=== PATIENT | male | born 1935 | race Caucasian/White ===

== ENCOUNTER 2020-09-29 14:49 | Inpatient (IN) | payer MEDICARE ==
[~2020-09-29] VITALS: Ht 177.8 cm; Wt 70.1 kg
[2020-09-29] MEDS ORDERED: SOTALOL160 MG PO (15:01)
[2020-09-29] MEDS ORDERED: JANTOVEN2.5 MG PO (15:05)
[2020-09-29] MEDS ORDERED: DILT-XR180 MG PO (17:27)
[2020-09-29] MEDS ORDERED: ATORVASTATIN CA40 MG PO (17:38)
[2020-09-29] MEDS ORDERED: GABAPENTIN100 MG PO (17:38)
--- NOTE | 2020-09-29 18:22 | NUR ---
PT ARRIVES FROM ER AT APPROXIMATLY 1810. PT IS ALERT AND OREINTED X4, HOWEVER HARD OF HEARING. PT ABLE TO STAND AND PIVOT TO THE BED. PT DENIES PAIN, NAUSEA, AND REPORTS IMPROVED SOB SINCE THIS AM. PT IS CURRENTLY ON 5L O2 VIA OXYMASK. PT VITALS ARE WNL. S-LOCK IN LEFT AC IS INTACT, FLUSHES EASILY, PT DENIES PAIN AT THE SITE. DINNER ORDERED FOR PT. PT REPORTS BEING COLD, WARM BLANKETS APPLIED.
--- NOTE | 2020-09-29 19:10 | NUR ---
pt back on bipap for increased work of breathing.
--- NOTE | 2020-09-29 19:46 | NUR ---
REPORT RECEIVED FROM LUCIANA RN, WILL CONTINUE PLAN OF CARE.
--- NOTE | 2020-09-29 20:33 | NUR ---
THIS RN IN TO ASSESS PT. PT LAYING IN BED AWAKE AND ALERT ON BIPAP WITH DAUGHTER AT BEDSIDE. BIPAP NOTED TO BE AT 50% FIO2, SPO2 AT 97%. PT IS ALERT AND ORIENTED AT THIS TIME, ASSESMENT COMPLETED AT THIS TIME. LUNGS ARE CLEAR IN UPPER LOBES AND CLEAR/DIMINISHED IN LOWER LOBES. EDEMA PRESENT IN THE LOWER LEGS/FEET THE RIGHT MORE THEN THE LEFT. PEDAL PULSES +1. RADIAL PULSES STRONG. CAPILLARY REFILL BRISK. PT DENIES SOB AND STATES HE FEELS MUCH BETTER WITH THE BIPAP ON. PT DENIES PAIN AT THIS TIME. SCHEDULED MEDICATIONS ADMINISTERED AT THIS TIME. PT REPORTS NO FURTHER NEEDS AT THIS TIME, WILL CONTINUE PLAN OF CARE. CALL LIGHT IN REACH, BED IN LOWEST POSITION, BIPAP ON AT 50% FIO2, SPO2 AT 97%.
--- NOTE | 2020-09-29 21:30 | NUR ---
THIS RN IN TO CHECK ON PT. PT LAYING IN BED SEMI-FOWLERS ON BIPAP. BIPAP ALARMING DUE TO AIR LEAK, MASK REPOSITIONED ON PT. PT AWAKE AND ALERT AND REPORTS NO FURTHER NEEDS WHEN ASKED. WILL CONTINUE PLAN OF CARE. CALL LIGHT IN REACH, BED IN LOWEST POSITION.
--- NOTE | 2020-09-29 22:25 | NUR ---
THIS RN IN TO ADMINISTER SCHEDULED MEDICATION. PT LAYING IN BED SLEEPING WITH BIPAP IN PLACE. PT AWOKE EASILY AND WAS INFORMED ABOUT THE MEDICATION. MEDICATION ADMINSTERED ORDERED. PT REPORTS NO NEEDS WHEN ASKED AND IS NOW LAYING IN BED WITH THE BIPAP ON. PT RETURNED BACK TO SLEEP, WILL CONTINUE PLAN OF CARE. CALL LIGHT IN REACH, BED IN LOWEST POSITION.
--- NOTE | 2020-09-29 23:22 | NUR ---
THIS RN IN TO ASSESS PT. PT LAYING IN BED AWAKE AT THIS TIME ON THE BIPAP. PT REPORTS NO PAIN OR SOB WHEN ASKED. PT ASSESSMENT DONE AT THIS TIME. PT GIVEN A SNACK PER HIS REQUEST, PT ABLE TO EAT A PUDDING ON 6L NC AND MAINTAINING SPO2 IN THE 95% RANGE. PT STATED HE WANTED TO GO BACK ON THE BIPAP AFTER DRINKING AND EATING HIS SNACK. PT PLACED BACK ON BIPAP AT THIS TIME. FIO2 STILL AT 50%, PT SPO2 AT 97%, RR AT 18. PT REPORTS NO FURTHER NEEDS AT THIS TIME WHEN ASKED, WILL CONTINUE PLAN OF CARE. CALL LIGHT IN REACH, BED IN LOWEST POSITION, TRAN DRAINING, BIPAP ON.
--- NOTE | 2020-09-30 02:00 | NUR ---
PT SLEEPING AT THIS TIME ON THE BIPAP. RESPIRATIONS NOTED AND ARE EVEN AND UNLABORED. PT IN NO APPARENT DISTRESS AND WAS LEFT UNDISTURBED. CALL LIGHT IN REACH, BED IN LOWEST POSITION. WILL CONTINUE PLAN OF CARE.
--- NOTE | 2020-09-30 04:16 | NUR ---
THIS RN IN TO ASSESS PT. PT LAYING IN BED ON BIPAP. PT AWOKE EASILY AT THIS TIME AND WAS ALERT AND ORIENTED. VITALS TAKEN AT THIS TIME, PT ASSESSED. PT REPORTS NO PAIN AT THIS TIME OR SOB. LUNGS ARE CLEAR IN UPPER LOBES AND CLEAR/DIM IN LOWER LOBES. PT REPORTS NO NEEDS AT THIS TIME AND WAS LEFT ON THE BIPAP. PT RETURNED BACK TO SLEEP. CALL LIGHT IN REACH, BED IN LOWEST POSITION, WILL CONTINUE PLAN OF CARE.
--- NOTE | 2020-09-30 06:23 | NUR ---
THIS RN IN TO DRAW LABS. PT LAYING IN BED ON BIPAP SLEEPING. LABS DRAWN FROM PT'S IV. IV FLUSHED AND SCHEDULED IV MEDICATION ADMINISTERED AT THIS TIME WELL (SEE MAR). PT REPORTS NO FURTHER NEEDS AT THIS TIME AND REMAINS ON THE BIPAP. CALL LIGHT IN REACH, BED IN LOWEST POSITION, WILL CONTINUE PLAN OF CARE.
--- NOTE | 2020-09-30 06:39 | NUR ---
DR. CURRY CALLED AT THIS TIME TO UPDATE HIM ON PT'S STATUS AND DECREASING URINE OUTPUT. NO NEW ORDERS GIVEN AT THIS TIME, WILL WAIT FOR LAB RESULTS.
--- NOTE | 2020-09-30 06:57 | NUR ---
THIS RN IN TO CHECK ON PT. PT LAYING IN BED AWAKE AND ALERT ON THE BIPAP. PT ASSISTED IN TAKING BIPAP OFF TO DRINK WATER. PT LEFT ON 5L O2 NC AT THIS TIME. PT SPO2 MAINTAINED AT 95%, RR OF 16. PT REPORTS NO FURTHER NEEDS WHEN ASKED, WILL CONTINUE PLAN OF CARE. CALL LIGHT IN REACH, BED IN LOWEST POSITION.
--- NOTE | 2020-09-30 08:53 | NUR ---
Sitting up in bed, eating breakfast. Assessment completed. Urine output remains low. IV lasix given as prescribed. Takes oral medications without difficulty. Denies pain at this time. Call light in reach, bed rails up X2. Remains on oxygen at 5L/min per nasal canula.
--- NOTE | 2020-09-30 09:00 | NUR ---
DR. CURRY AWARE OF LOW URINE OUTPUT, LASIX ORDERED AND GIVEN.
[2020-09-30] MEDS ORDERED: LASIX40 MG PO (09:14)
[2020-09-30] MEDS ORDERED: NITROSTAT0.4 MG SL (09:21)
[2020-09-30] MEDS ORDERED: VENTOLIN HFA18 GM INH (09:24)
[2020-09-30] MEDS ORDERED: PRESERVISION A1 EACH PO (09:25)
[2020-09-30] MEDS ORDERED: LO-DOSE ASPIRIN81 M1 PO (09:25)
--- NOTE | 2020-09-30 09:48 | NUR ---
PT in room working with patient at this time.
--- NOTE | 2020-09-30 10:08 | NUR ---
LARGE INCREASE IN URINE OUTPUT NOTED SINCE ADMINISTERING IV LASIX. VITALS REMAIN WNL. DENIES NEEDS AT THIS TIME. FRESH ICE WATER PROVIDED.
--- NOTE | 2020-09-30 10:30 | NUR ---
PT EVALUATED BY THIS RT FOR COPD CARE PATH. BASED ON RECENT COPD EXASERBATION REQUIRING HOSPITALIZATION IT WAS RECOMMENDED TO CLINICAL PHARMACY THAT PATIENT BE STARTED ON INHALED LAMA UPON DISCHARGE. RT ALSO RECOMMENDS OBTAINING REST AND EXERCISE OXIMETRY PRIOR TO DISCHARGE. PT ALREADY HAS [facility]IA [facility] FOR HOME USED. PROPER INHALER TRAINING WITH SPACER CONDUCTED WITH PATIENT. PT LEFT WITH SPACER IN, PLACED WITH PATIENT BELONGINGS.
--- NOTE | 2020-09-30 11:00 | NUR ---
Spoke with Mak and his daughter, Pilar. PT is very [place] and has his hearing aids in. Staying with daughter since covid as he lives in [place], [place] in assisted living and it was locked down. Pt drives himself to [facility] monthly, then returns to daughter's home in [place]. Denies needs and plans on dc to daughters home when cleared medically. No financial issues.
--- NOTE | 2020-09-30 12:09 | NUR ---
Patient in bed. Medications administered as prescribed. Takes without difficulty. Second dose of IV lasix administered. Urine ouput has maintained. Remains on O2. Switched from oxymask to nasal canula so he may eat. O2 at 5L/min per nasal canula while eating. No further changes from AM assessment noted.
--- NOTE | 2020-09-30 13:53 | EKG ---
[facility] [address] [facility] [place] [address] Signed Sinus rhythm with 1st degree AV block Incomplete left bundle branch block Abnormal QRS-T angle, consider primary T wave abnormality Prolonged QT Abnormal ECG When compared with ECG of 29-SEP-2020 15:22, (Unconfirmed) Sinus rhythm has replaced Electronic atrial pacemaker Confirmed by SILVIA CURRY DO ([id number]) on 09/30/2020 1:53:06 PM Electronically Signed By: SILVIA CURRY DO 09/30/20 1353 PATIENT NAME: CHATA BARFIELD Electrocardiogram DATE OF : 31 PHYSICIAN: SILVIA CURRY DO REPORT #: [id number] REPORT IS CONFIDENTIAL AND NOT TO BE RELEASED WITHOUT AUTHORIZATION
--- NOTE | 2020-09-30 13:53 | EKG ---
[facility] [address] [facility] [place] [address] Signed Atrial-paced rhythm with prolonged AV conduction Incomplete left bundle branch block ST \T\ T wave abnormality, consider lateral ischemia Abnormal ECG No previous ECGs available Confirmed by SILVIA CURRY DO ([id number]) on 09/30/2020 1:53:34 PM Electronically Signed By: SILVIA CURRY DO 09/30/20 1353 PATIENT NAME: CAROLYNECHATA Electrocardiogram DATE OF : 31 PHYSICIAN: SILVIA CURRY DO REPORT #: [id number] REPORT IS CONFIDENTIAL AND NOT TO BE RELEASED WITHOUT AUTHORIZATION
--- NOTE | 2020-09-30 14:28 | NUR ---
PATIENT MOVED FROM ROOM 127 TO ROOM 115 AT 1415. IV STEROID GIVEN, IV MAGNESIUM INFUSION STARTED. PATIENT IS OTHERWISE RESTING COMFORTABLY, 2L OF OXYGEN AT THIS TIME.
--- NOTE | 2020-09-30 14:51 | NUR ---
Attempted to see patient for heart failure education. Patient asleep after transferring rooms. Chart reviewed. Awaiting echocardiogram results.
--- NOTE | 2020-09-30 16:08 | NUR ---
PATIENT RESTING IN BED. DAILY COUMADIN DOSE GIVEN.
--- NOTE | 2020-09-30 17:45 | NUR ---
PATIENT BOOSTED IN BED AND SITTING UP FOR DINNER. PATIENT DENIES OTHER NEEDS AT THIS TIME.
--- NOTE | 2020-10-01 01:24 | NUR ---
RESTING, EYES CLOSED, NO DISTRESS, O2 2L NC. NOT USING CPAP AT THIS TIME, F/C PATENT
--- NOTE | 2020-10-01 05:12 | NUR ---
Pt has slept, O2 2LNC in place, lungs dim at bases, no cough noted, this shift. did not used his cpap.. f/c patent. no c/o pain. gets nebs. helps with turning and repositoning, no emesis, tolerating fludis
--- NOTE | 2020-10-01 06:49 | NUR ---
aWAKE, COOP WITH ASSESSMENT, ON ROOOM AIR AT THIS TIME, NO C/O SOB. WATCHING TV
--- NOTE | 2020-10-01 07:15 | NUR ---
SHIFT REPORT FROM TOM JOSEPH INCLUDED: pt had an uneventful evening. pt was on 2L NC but has been able to safely maintain his o2sats >90% on RA, so pt is currently on RA. pt is currently resting in bed, with eyes closed, breathing even and unlabored, table and call light within reach.
--- NOTE | 2020-10-01 08:03 | NUR ---
PT EATING BREAKFAST. BP ELEVATED SINCE LAST READING. PT HAS NO COMPLAINTS. RN HERIBERTO INFORMED. PT RESTING COMFORTABLY.
--- NOTE | 2020-10-01 08:30 | NUR ---
ROUNDING student nurse and teacher working with pt at this time. table and call light in reach.
--- NOTE | 2020-10-01 08:47 | NUR ---
Pt given medications by this nursing manager and instructor Lucille Renner RN. Pt tolerated meds without complication. Pt resting comfortably watching TV. RT in pt room to administer nebulized medications. SN Gregory
--- NOTE | 2020-10-01 10:00 | NUR ---
ASSESSMENT pt med pass and morning assessment done by student nurse Elizabeth and her teacher. my pt assessment complete at this time. VSS. pt denies pain and nausea. pt reports that he is cold and prefers his blankets up to his chin, but is otherwise comfortable. pt denies further needs at this time. pt winston emptied, clear light yellow urine, quantity sufficient. pt in bed, table and call light in reach.
--- NOTE | 2020-10-01 10:47 | NUR ---
PT FINISHED 75% OF BREAKFAST WITH COFFEE AND WATER. PT RESTING COMFORTABLY WATCHING TV. RT PERFORMED ECG, LEFT ROOM. ASSESSMENT DONE BY THIS SUGGESTION CLERK. PT HAS NO COMPLAINTS AND PAIN LEVEL IS 0/10. REFILLED ICE WATER. LEFT ANTICUBITAL IV PATENT, DRESSING INTACT. CALL LIGHT WITHIN REACH. TRAN EMPTIED, 450 ML CLEAR YELLOW URINE. PACEMAKER NOTED. HR REGULAR AND REMAINS 99-103 BPM. PT HAS SLIGHT EDEMA ON BILTERAL ANKLE AND BILATERAL FOOT BUT DENIES PAIN, C/O NUMBNESS AND TINGLING WHICH HE STATES IS NORMAL. CAP REFILL APPROX 4 SECONDS IN BILATERAL FOOT. PEDAL PULSES WEAK, EQUAL BILATERALLY. MARY BATES, SN
--- NOTE | 2020-10-01 11:00 | NUR ---
ROUNDING student nurse and teacher working with pt at this time. table and call light in reach.
--- NOTE | 2020-10-01 11:51 | NUR ---
VITAL SIGNS AND MED PASS Pt given gabapentin per orders. Pt denies pain at this time but states he still luisito tingling in biteral foot. PT at bedside, ready to take patient for a walk. spo2 between 89-91% on room air. RT to put portable o2 monitor on patient during walk, he will also administer nebulized medications after walk. Pt denies complaints and does not need anything at this time. Call light within reach. MARY BATES, SN
--- NOTE | 2020-10-01 13:45 | NUR ---
ROUNDING student nurse and teacher working with pt at this time. table and call light in reach.
--- NOTE | 2020-10-01 13:50 | NUR ---
Certified Heart Failure Nurse Notes: Date of echocardiogram 09/30/20 EF 40-45% Admit BNP: 1650 Social support system: Lives in [facility] in [place]. For past 3 months has been staying with his family. Weight monitoring: Scale present in home. Identifies how to weigh daily. Educated given on when to notify PCP Symptom management: Addressed monitoring and reporting changes in weight or symptoms Diet: Lost 20 lbs due to loss of [facility] dining facility during covid. He reports he was having to drive to get a sandwich to eat daily. In current situation family cooks and he states his son is "anti-salt". Rationale for low sodium diet explained. Usual physical activity: Walks some. Agrees to incrementally increase physical activity when home. Medication routine: Denies forgetting medications, takes them prior to breakfast and dinner. Does utilize 7 day pill boxes. Advanced directive: Not discussed at this initial visit Recommendations prior to discharge: Document ambulation oxygen saturations prior to discharge Discharge weight less than admit weight. Discharge BNP less than admit (as per [facility] Heart Failure DC Bundle) PCP is located in [place]. He will not be traveling back until October. Will need to have a follow up visit in [place] area, ideally, 7 days post-discharge. Follow-up plans: Patient agrees to receive follow up call from this service. Patient does not currently qualify for cardiac rehabilitation but would be welcome for complimentary outpatient heart failure education. Patient states he has the [facility] Heart Failure bundle folder. Teaching materials given today: Patient states he has the [facility] Heart Failure bundle folder. [facility] contact information Low Sodium Shopping list.
--- NOTE | 2020-10-01 13:58 | NUR ---
VITAL SIGNS AND MED PASS Administered Klor Con per order. Pt was able to swallow without difficulty, tolerated well. Pt finished 80% lunch. This student nurse emptied winston, retreived fresh ice water for patient. Call light within reach. Pt resting comfortably, watching TV, sitting up in bed. MARY BATES SN
--- NOTE | 2020-10-01 14:24 | NUR ---
VITAL SIGNS AND WALK Pt completed laps 4x around med/surg unit. VSS. Returned to room and pt c/o abd pain and right sided abd pain 12/29, he is requesting pain medication. Pt sitting in recliner watching TV. Call light within reach. Pt declines shower/ bed bath and states "I jsut want to wipe off my armpits and bottom today," OPAL Pantoja informed. MARY BATES, SN
--- NOTE | 2020-10-01 15:07 | NUR ---
MED PASS Lasix PO given as ordered. Pt tolerated well. Dinner and breakfast orders called to kitchen. Pt resting comfortably, sitting up in bed, watching TV. MARY BATES SN
--- NOTE | 2020-10-01 17:05 | NUR ---
MED PASS/ [facility] Warfarin administered per orders. Pt was able to swallow easily. Pt tolerated well. Pt given fresh ice water. Winston care complete to include emptying winston and cleaning around insertion site. No drainage, discharge, or bleeding noted. Pt has no complaints. Pt sitting up in bed watching TV, resting comfortably. MARY BATES SN
--- NOTE | 2020-10-01 18:20 | NUR ---
VITAL SIGNS VSS and WNL. Pt's spo2 continues at 90%. Pt has no complaints, denies SOB. Pt finished 90% of his dinner. Pt sitting up in bed watching TV. Pt's daughter at bedside visiting with him. Call light within reach. MARY BATES SN
--- NOTE | 2020-10-01 19:32 | NUR ---
Awake, on room air, sats 90-91%. no sob noted or stated. f/c patent, repositions self in bed. Visiting with family. daugther states that father walkin or being "wobbly" is normal. Pt states that he is going home in am. RT in room.
--- NOTE | 2020-10-01 21:45 | NUR ---
IN TO GET VITALS OFF WHITEBOARD FOR RN, NO FURTHER NEEDS
--- NOTE | 2020-10-01 22:51 | NUR ---
RESTING, EYES CLOSED, USING CPAP, NO DISTRESS, TURNS SELF IN BED, F/C PATENT, CALL LIGHT AND FLUIDSA T BEDSIDE, CONT ON FLUIDS RESTRICTION, TOLERATING WELL
--- NOTE | 2020-10-01 23:46 | NUR ---
CPAP ALARMING, PT TOOK OFF AND DECLINED TO WEAR AGAIN AT THIS TIME, CPAP IN STANDBY MODE, EXTRA BLANKET PROVIDED AT THIS TIME, NO FURTHER NEEDS, RN AWARE OF CPAP
--- NOTE | 2020-10-02 01:10 | NUR ---
RESTING, NO DISTRESS, ON ROOM AIR, F/C PATENT. CALL LIGHT AT BEDSIDE
--- NOTE | 2020-10-02 03:24 | NUR ---
RESTIN, OON ROOM AIR, NO C/O PAIN, TOLERTING LIQUIDS WELL, F/C PATENT. CALL LIGHT AND FLUIDS AT BEDSIDE
--- NOTE | 2020-10-02 05:17 | NUR ---
HAS SLEPT THIS SHIFT. USED cpap FOR A SHORT TIME, ON ROOM AIR, SATS LOW 90'S. NO SOB OR SOB WITH EXERTION NOTED. MUCH IMPROVED GAIT WHEN STANDING UP TO WEIGHT. DAILY STANDING WEIGHT DONE 70.1 KG. ON FLUID RESTRICTIN, TOLERATING WELL. NO EMESIS. F/C PATENT, DRAINING QS YELLOW URINE. CALL LIGHT AND FLUIDS AT BEDSIDE. PT STATES THAT HE IS GOING HOME TODAY. PLEASANT AND COOP. [place]. WEARS R BUSHRA AID. TURNS AND REPOSITIONS SELF IN BED.
--- NOTE | 2020-10-02 07:24 | NUR ---
SHIFT REPORT FROM TOM JOSEPH INCLUDED: pt had an uneventful evening, and was able to sleep well during the night. pt is anticipating DC today. pt currently in bed, resting with eyes closed, breathing even and unlabored, table and call light within reach.
--- NOTE | 2020-10-02 07:27 | NUR ---
VITAL SIGNS/ SHIFT CHANGE VSS and WNL. Pt was resting his eyes, sitting up in bed, now watching TV. He is waiting on breakfast and would like to be discharged today. Pt has no complaints. Call light on bedside table. Pt denies pain. SN PAULETTE
--- NOTE | 2020-10-02 08:16 | NUR ---
SKIN ASSESSMENT Pt's skin is grossly intact. One small scratch on LLE, patient denies pain and did not know it was there until I told him. Toenail beds are pale, cap refill greater than 3 seconds. Pt c/o numbness and tingling in bilateral foot. MARY BATES, SN
--- NOTE | 2020-10-02 08:18 | EKG ---
[facility] [address] [facility] [place] [address] Signed Atrial-paced rhythm with prolonged AV conduction Left axis deviation Nonspecific T wave abnormality Prolonged QT Abnormal ECG When compared with ECG of 29-SEP-2020 17:35, (Unconfirmed) Electronic atrial pacemaker has replaced Sinus rhythm QT has lengthened Confirmed by SILVIA CURRY DO ([id number]) on 10/02/2020 8:17:48 AM Electronically Signed By: SILVIA CURRY DO 10/02/20 0818 PATIENT NAME: CHATA BARFIELD Electrocardiogram DATE OF : 31 PHYSICIAN: SILVIA CURRY DO REPORT #: [id number] REPORT IS CONFIDENTIAL AND NOT TO BE RELEASED WITHOUT AUTHORIZATION
--- NOTE | 2020-10-02 08:30 | NUR ---
ROUNDING pt getting duo-neb tx with R.T. at this time. table and call light in reach,
--- NOTE | 2020-10-02 09:00 | NUR ---
ASSESSMENT pt assessment complete, VSS. pt initial med pass and assessment completed by student nurse Elizabeth. pt cooperative with second assessment. pt denies pain, nausea, and SOB. pt having water, tolerating fluid restriction well at this time. pt denies further needs. table and call light in reach.
--- NOTE | 2020-10-02 09:23 | NUR ---
PER DR. CURRY PATIENT NEEDS TO HAVE LABS DRAWN NEXT WEEK WITH POSSIBLE MEDICATION ADJUSTMENT. WOULD LIKE PATIENT TO BE SEEN HERE HE DOES NOT SEE HIS DOCTOR IN [place] FOR 2-3 WEEKS. CONTACTED ELIESER AT [facility] REGARDING APPOINTMENT. [facility] AND [employer] FAXED PER HER REQUEST. ELIESER WILL CALL BACK WITH APOOINTMENT DAY AND TIME.
[2020-10-02] MEDS ORDERED: SPIRIVA18 MCG INH (09:29)
[2020-10-02] MEDS ORDERED: FUROSEMIDE40 MG PO (09:29)
[2020-10-02] MEDS ORDERED: LISINOPRIL2.5 MG PO (09:30)
[2020-10-02] MEDS ORDERED: AMIODARONE HCL200 MG PO (09:31)
[2020-10-02] MEDS ORDERED: PREDNISONE20 MG PO (09:32)
--- NOTE | 2020-10-02 09:40 | NUR ---
PER ELIESER AT [facility] PATIENT SCHEDULED 10/08/20 AT 1020 TO ESTABLISH CARE. ELIESER WILL FAX OVER NEW PATIENT PAPERWORK TO CASE MANAGEMENT. DR. CURRY NOTIFIED.
--- NOTE | 2020-10-02 10:00 | NUR ---
ROUNDING pt working with student nurse and her teacher at this time, winston catheter being removed. call light in reach.
--- NOTE | 2020-10-02 10:11 | NUR ---
TRAN CATH REMOVED, VITAL SIGNS, MED PASS Klor-Con administered as ordered, patient swallowed easily and tolerated well. Tran catheter removed without complication. 10 mL removed from balloon. Radio Time Salesperson Lucille Renner RN at bedside. Pt has his own "penis clamp" which he uses for urinary dribbling and incontinence. Per pt he has used this since 1978. Pt placed this device himself. VSS and WNL. Pt sitting up in bed watching TV. PT in to take patient for a walk. Pt declined to order lunch as he is being discharged soon. MARY BATES, SN
--- NOTE | 2020-10-02 11:18 | NUR ---
Pt given urinal at bedside. Per OPAL Pantoja, patient must urinate at least 100ml before discharge. Pt given these instructions, verbalized understanding and was agreeable with plan. Fresh water and call light within reach. Pt has no complaints. He is sitting on the edge of his bed. MARY BATES SN
--- NOTE | 2020-10-02 11:34 | NUR ---
VITAL SIGNS, DC IV, I & O VSS. Pt sitting on the edge of his bed with feet on the floor, shaving. Pt has no complaints. Per MD order, saline lock IV discontinued. Pulled without complication, pt tolerated well. urinary output 100 mL in bedside urinal. Pt denies painful urination. MARY BATES, SN
--- NOTE | 2020-10-02 11:39 | EKG ---
[facility] [address] [facility] [place] [address] Signed Atrial fibrillation with rapid ventricular response with frequent ventricular-paced complexes Incomplete left bundle branch block Nonspecific T wave abnormality Prolonged QT Abnormal ECG When compared with ECG of 30-SEP-2020 08:08, (Unconfirmed) Electronic ventricular pacemaker has replaced Electronic atrial pacemaker Confirmed by SILVIA CURRY DO ([id number]) on 10/02/2020 11:39:24 AM Electronically Signed By: SILVIA CURRY DO 10/02/20 1139 PATIENT NAME: CHATA BARFIELD Electrocardiogram DATE OF : 31 PHYSICIAN: SILVIA CURRY DO REPORT #: [id number] REPORT IS CONFIDENTIAL AND NOT TO BE RELEASED WITHOUT AUTHORIZATION
--- NOTE | 2020-10-02 12:26 | NUR ---
PT SITTING ON SIDE OF BED, DRESSED AND WAITING FOR HIS TO ARRIVE TO TAKE HIM HOME FOLLOWING DC. PT IS ALERT, ORIENTED AND EXPRESSED GRATITUDE FOR THE CARE HE HAS RECEIVED AT [facility]. GAVE ENCOURAGEMENT AND BLESSING.
--- NOTE | 2020-10-05 15:56 | NUR ---
Heart failure post-discharge follow up call. Left message for patient to call this service.
== END 2020-10-02 12:10 | disposition home or self-care (01) | DRG 291 ==
LOC: ED 14:49 → CCU 16:50 → MS 16:50 → CCU 17:37 → MS 09-30 14:15
PROVIDERS: ADMIT Student in an Organized Health Care Education/Training Program; ATTEND Student in an Organized Health Care Education/Training Program
PROC: 5A09357 Assistance with Respiratory Ventilation, Less than 24 Consecutive Hours, Continuous Positive Airway Pressure (ICD-10-PCS; principal; 2020-09-29)
DX: I50.23 Acute on chronic systolic (congestive) heart failure (principal); J96.01 Acute respiratory failure with hypoxia; J44.1 Chronic obstructive pulmonary disease with (acute) exacerbation; Z20.822 Contact with and (suspected) exposure to COVID-19; I48.91 Unspecified atrial fibrillation; G89.29 Other chronic pain; F17.210 Nicotine dependence, cigarettes, uncomplicated; R94.31 Abnormal electrocardiogram [ECG] [EKG]; Z79.899 Other long term (current) drug therapy; Z79.01 Long term (current) use of anticoagulants; Z95.0 Presence of cardiac pacemaker
CPT/HCPCS: 36415; 36600; 71045; 80048; 80053; 82803; 83735; 83880; 84132; 84484; 85025; 85610; 93005; 93010; 93306; 94640; 94660; 94664; 94668; 96374; 97110; 97116; 97162; 99285-25; 99406; C9803; J1940; J2930; J3475; J7512; U0003